=== PATIENT | male | born 1970 | race Caucasian/White ===

== ENCOUNTER → 2021-08-14 08:59 | Outpatient (CLI) | payer OTHER, MEDICAID, SELFPAY | PROVIDERS: Family Provider Family Medicine; PCP Family Medicine; Referring Provider Family Medicine; Visit Provider Family Medicine | DX: R20.0 Anesthesia of skin (principal) | CPT/HCPCS: 95886; 95909 ==

== ENCOUNTER → 2021-09-05 14:05 | Outpatient (CLI) | payer OTHER, MEDICAID, SELFPAY ==
--- NOTE | 2021-09-05 | DI.MRI.S_ITS ---
PROCEDURE: MR LUMBAR SPINE WO CON INDICATIONS: Lumbago with sciatica, right side TECHNIQUE: Noncontrast sagittal T1 spin echo and T2 fast echo, sagittal STIR, axial T1 and T2 fast spin echo through the lumbar spine. In cases with scoliosis, additional coronal T2 fast spin echo may be performed. COMPARISON: [facility], MR, L-SPINE WITHOUT CONTRAST, 01/03/2014, 7:51. [facility], MR, L-SPINE WITHOUT CONTRAST, 12/10/2015, 7:36. [facility], MR, L-SPINE WITHOUT CONTRAST, 12/08/2011, 16:07. FINDINGS: Image quality: Excellent. Alignment and Curvature: There is minimal retrolisthesis seen at L5-S1. Bone Marrow: Marrow is of normal overall signal. No acute vertebral body compression fractures. Spinal Cord: Conus medullaris terminates at the T12-L1 level. Visualized cord demonstrates normal signal and size. Paraspinous Soft Tissues: No paravertebral masses. T12-L1: Normal appearance. L1-L2: The disc height and disk signal are well-preserved. Mild generalized disc bulge is seen. Mild facet joint hypertrophy is seen. There is [id number] left-sided and no right-sided neural foraminal narrowing seen. No central canal narrowing is seen. When comparison is made with the prior images, these findings are similar. L2-L3: Crcx-[id number] loss of disc height and disc signal can be seen. Moderate disc bulge is seen, with a central disc protrusion. Mild to moderate facet hypertrophy is seen. Fluid is seen within the facet joints themselves. Moderate bilateral neural foraminal narrowing is seen. Moderate central canal narrowing is seen. When comparison is made with the prior images, these findings are similar. L3-L4: Moderate loss of disc height is seen. Loss of disc signal is seen. Moderate disc bulge is seen, with a central disc protrusion. Moderate facet joint hypertrophy is seen. There is moderate right-sided and at least moderate left-sided neural foraminal narrowing seen. There is a degree of compression seen upon the exiting left L3 nerve root. Moderate to prominent central canal narrowing is seen, as on series 5, image 22. These imaging findings have progressed compared to the prior study. L4-L5: Mild loss of disc height is seen. Loss of disc signal is seen. Reactive marrow endplate changes are seen which are hypointense on T1-weighted imaging and hyperintense on T2 weighted imaging, which is most consistent with edema (Modic type I changes). Moderate disc bulge is seen, with a central/right disc protrusion. There is also an extruded, sequestered disc fragment seen inferior to the disc protrusion on the right side, as on series 5, image 28 and on series 2, image 7. This sequestered fragment measures up to 1 cm. Moderate facet joint hypertrophy is seen. There is moderate left-sided and moderate to severe right-sided neural foraminal narrowing seen. There is a degree of compression seen upon the exiting right L4 nerve root. Moderate to prominent central canal narrowing is seen. The sequestered disc fragment is new compared to the prior examination. The degree of central canal narrowing and the right-sided neural foraminal narrowing have progressed compared to 2016. L5-S1: At least moderate loss of disc height and disc signal can be seen. Reactive marrow endplate changes are seen, which are hyperintense on T1-weighted and T2-weighted imaging and most consistent with fatty metaplasia (Modic type II changes). Moderate disc bulge is seen, with a central disc protrusion. Mild to moderate facet hypertrophy is seen. There is moderate to severe bilateral neural foraminal narrowing seen, with associated compression upon the exiting L5 nerve roots. Moderate central there is slight progression compared to 2016. IMPRESSION: Multiple levels of lumbar spine degenerative change are seen, which have progressed inferiorly compared to 2016. At the L4-L5 level, there is now seen a sequestered disc fragment inferior to the disc level and to the right of the midline, which measures 1 cm. Several sites of significant neural foraminal narrowing can be seen, with associated exiting nerve root compression. Dictated by: Ever Fernandez M.D. on 09/05/2021 at 15:30 Approved by: Ever Fernandez M.D. on 09/05/2021 at 15:38
== END ==
PROVIDERS: Family Provider Family Medicine; PCP Family Medicine; Referring Provider Family Medicine; Visit Provider Family Medicine
DX: M54.41 Lumbago with sciatica, right side (principal); M47.816 Spondylosis without myelopathy or radiculopathy, lumbar region; M47.817 Spondylosis without myelopathy or radiculopathy, lumbosacral region; M48.061 Spinal stenosis, lumbar region without neurogenic claudication; M48.07 Spinal stenosis, lumbosacral region
CPT/HCPCS: 72148

== ENCOUNTER → 2023-05-27 17:02 | Outpatient (CLI) | payer OTHER, MEDICAID, SELFPAY ==
--- NOTE | 2023-05-27 | DI.MRI.S_ITS ---
PROCEDURE: MR HEAD/BRAIN WO/W CON INDICATIONS: HEADACHE , UNSPECIFIED TECHNIQUE: Noncontrast axial T1 spin echo, axial T2 fast spin echo, sagittal and axial FLAIR, coronal T2 fast spin echo, axial gradient echo, axial diffusion and ADC through the brain. After the administration of contrast, axial and coronal and sagittal 3D VIBE or T1 spin echo with fat saturation through the brain. COMPARISON: None. FINDINGS: Image quality: Excellent. CSF Spaces: Basal cisterns are patent. No extra-axial fluid collections. Ventricles are normal in size and shape. Brain: No midline shift. No intracranial bleeds or masses. No abnormal intracranial enhancement. The brainstem appears normal. Diffusion-weighted images demonstrate no acute ischemic insults. No chronic ischemic insults. Normal intravascular flow voids are present. Skull and face: Calvarial marrow is normal in signal. Orbits appear normal. Sinuses: Sinuses and mastoids appear clear. IMPRESSION: 1. No acute process. No recent infarct. 2. No explanation for headache. Dictated by: Sammi Coker M.D. on 05/28/2023 at 8:46 Approved by: Sammi Coker M.D. on 05/28/2023 at 8:47
== END ==
PROVIDERS: Family Provider Family Medicine; PCP Family Medicine; Referring Provider Family Medicine; Visit Provider Family Medicine
DX: R51.9 Headache, unspecified (principal)
CPT/HCPCS: 70553; A9579

== ENCOUNTER → 2023-06-16 12:57 | Outpatient (CLI) | payer OTHER, MEDICAID, SELFPAY ==
--- NOTE | 2023-06-16 12:59 | DI.RAD.S_ITS ---
PROCEDURE: XR FOOT LT MIN 3V INDICATIONS: foot pain TECHNIQUE: 3 views of the foot were acquired. COMPARISON: [facility], , FOOT 3V RIGHT, 10/26/2013, 18:12. FINDINGS: Bones: No fractures or dislocations. No suspicious bony lesions. Decreased osseous mineralization. Ultra deformity of the distal tibia. Soft tissues: No tibiotalar joint effusion. Achilles tendon appears normal. IMPRESSION: No acute fracture or dislocation. If pain persists with conservative management, recommend repeat imaging in 10-14 days or cross-sectional imaging. Dictated by: Carroll Martinez M.D. on 06/16/2023 at 14:45 Approved by: Carroll Martinez M.D. on 06/16/2023 at 14:59
== END ==
PROVIDERS: Family Provider Family Medicine; PCP Family Medicine; Referring Provider Family Medicine; Visit Provider Family Medicine
DX: M79.672 Pain in left foot (principal)
CPT/HCPCS: 73630

== ENCOUNTER → 2023-07-06 13:34 | Outpatient (CLI) | payer OTHER, MEDICAID, SELFPAY ==
--- NOTE | 2023-07-06 | DI.RAD.S_ITS ---
PROCEDURE: XR FOOT LT MIN 3V INDICATIONS: Pain in left foot TECHNIQUE: 3 views of the foot were acquired. COMPARISON: [facility], CR, XR FOOT LT MIN 3V, 06/16/2023, 13:10. FINDINGS: Bones: Cortical irregularity involving plantar aspect of posterior calcaneus is seen on lateral view concerning for nondisplaced fracture in this area suggest clinical correlation. Moderate tibiotalar joint osteoarthritic changes are noted. No other fracture or dislocation is seen. No suspicious bony lesions. Soft tissues: No tibiotalar joint effusion. Achilles tendon appears normal. IMPRESSION: Abnormal lucency and cortical irregularity involving plantar cortex of posterior calcaneus suggest clinical correlation for possible nondisplaced posterior calcaneal fracture. Moderate tibiotalar joint osteoarthritis. No other fracture or dislocation is seen. Dictated by: Jake Mcintyre M.D. on 07/06/2023 at 15:08 Approved by: Jake Mcintyre M.D. on 07/06/2023 at 15:16
== END ==
PROVIDERS: Family Provider Family Medicine; PCP Family Medicine; Referring Provider Family Medicine; Visit Provider Family Medicine
DX: M19.072 Primary osteoarthritis, left ankle and foot (principal); M79.672 Pain in left foot
CPT/HCPCS: 73630

== ENCOUNTER → 2023-07-14 12:02 | Outpatient (CLI) | payer OTHER, MEDICAID, SELFPAY ==
--- NOTE | 2023-07-14 | DI.MRI.S_ITS ---
PROCEDURE: MR ANKLE LT WO CON INDICATIONS: Unspecified fracture of left calcaneus TECHNIQUE: Noncontrast sagittal T1 spin echo and T2 fast spin echo with fat saturation, axial proton density fast spin echo and T2 fast spin echo with fat saturation, coronal T1 spin echo and T2 fast spin echo with fat saturation through the ankle/hindfoot. COMPARISON: [facility], CR, XR FOOT LT MIN 3V, 07/06/2023, 13:39. FINDINGS: Image quality: Excellent. Bones and joints: There is a nondisplaced fracture of the posterior plantar calcaneus involving the majority of the apophysis with osseous edema throughout the remainder of the calcaneus. No additional osseous fracture or trabecular bone injury is seen. Postsurgical changes are seen at the distal tibia and fibula with numerous foci of micro metallic artifact. Mild residual osseous deformity. Previous fractures appear healed without osseous edema. Cystic changes are noted at the anterolateral aspect of the tibial plafond. No osteochondral lesion in the talar dome. Mild degenerative changes at the mortise joint. Nonspecific soft tissue edema surrounding the ankle. Medial structures: The deep and superficial layers of the deltoid ligament appear intact. The spring ligament components are intact. The posterior tibialis, flexor digitorum longus, and flexor hallucis longus tendons are intact. The posterior tibial neurovascular bundle appears normal within the tarsal tunnel, without extrinsic mass effect. Lateral structures: Remote prior sprain of the calcaneofibular ligament. The anterior and posterior talofibular ligaments appear intact. There is ossification of the anterior tibiofibular ligament. The posterior tibiofibular ligament is grossly intact. Mild peroneus brevis and longus tenosynovitis. The sinus tarsi demonstrates normal fatty signal. Anterior structures: The tibialis anterior, extensor hallucis longus, and extensor digitorum longus tendons appear intact. The dorsal talonavicular ligament appears intact. Posterior and plantar structures: Achilles tendon is intact. The proximal plantar fascia is intact. No abductor digiti quinti muscle atrophy to suggest Hendricks neuropathy. IMPRESSION: 1. Nondisplaced fracture of the posterior plantar aspect of the calcaneus with prominent osseous edema throughout the calcaneus. The Achilles tendon insertion and proximal plantar fascia are intact. 2. Postsurgical changes at the distal tibia and fibula with mild residual osseous deformity. 3. Remote prior low-grade sprain of the calcaneofibular ligament. Ossification of the anterior tibiofibular ligament. 4. Mild peroneus brevis and longus tenosynovitis. Approved by: Joe Hines M.D. on 07/15/2023 at 12:01
== END ==
PROVIDERS: Family Provider Family Medicine; PCP Family Medicine; Referring Provider Registered Nurse; Visit Provider Registered Nurse
DX: S92.002A Unspecified fracture of left calcaneus, initial encounter for closed fracture (principal); S93.411A Sprain of calcaneofibular ligament of right ankle, initial encounter; M65.872 Other synovitis and tenosynovitis, left ankle and foot; X58.XXXA Exposure to other specified factors, initial encounter
CPT/HCPCS: 73721